=== PATIENT | female | born 1980 | race Caucasian/White ===

== ENCOUNTER 2018-08-11 11:00 | Day surgery (SDC) | payer BC ==
[~2018-08-11] VITALS: Ht 157.5 cm; Wt 74.8 kg
[2018-08-11] VITALS (15 sets, daily range): BP systolic 112–135; BP diastolic 71–88; PULSE 78–96; RESP 12–24; Ht 157.5 cm; Wt 74.8 kg
[~2018-08-11 11:00] MED LIST: CEFAZOLIN 1 GM INJ ONE; CEFAZOLIN 2 GM/50 ML (PMX) 50 ML IVPB SCH; DESFLURANE 15 MIN ONE; ONDANSETRON 4 MG INJ ONE; SOD CHLORIDE 0.9% 1,000 ML IV ONE
[2018-08-11] MEDS ORDERED: NITR100C6 ORAL (11:56)
[2018-08-11] MEDS ORDERED: IBUP-1541 ORAL (11:56)
[2018-08-11] MEDS ORDERED: ROCURONIUM 50 MG INJ ONE (13:09)
[2018-08-11] MEDS ORDERED: METOCLOPRAMIDE 10 MG INJ ONE (13:09)
[2018-08-11] MEDS ORDERED: MIDAZOLAM 1 MG/ML 2 ML INJ ONE (13:09)
[2018-08-11] MEDS ORDERED: FENTAnyl 50 MCG/ML VIAL ONE (13:09)
[2018-08-11] MEDS ORDERED: PROPOFOL 20 ML ONE (13:09)
[2018-08-11] MEDS ORDERED: SUCCINYLCHOLINE CHLORIDE 100 MG/5 ML SYG IV ONE (13:09)
[2018-08-11] MEDS ORDERED: LIDOCAINE 100 MG SYRINGE ONE (13:12)
--- NOTE | 2018-08-11 13:35 | PREAC ---
Date/Time of Note Date/Time of Note DATE: 08/11/18 TIME: 13:34 Anesthesia Eval and Record Evaluation Time Pre-Procedure Interview DATE: 08/11/18 TIME: 13:34 Age 37 Sex female NPO: 8 hrs Preoperative diagnosis gallstones Planned procedure lap eliazar Past Medical History Past Medical History: Includes Renal: Other (UTI) Surgery & Anesthesia Issues No known issue Meds Anticoagulation: No Beta Sobia within 24 hr: No Reason Beta Sobia not given: Pt. not on B-Sobia Reported Medications Nitrofurantoin Monohyd Macrocr (Macrobid) 100 Mg Capsr, 1 CAP ORAL BID 08/11/18 Ibuprofen* (Ibuprofen*) 400 Mg Tablet, 1 TAB ORAL Q6 PRN for PAIN LEVEL 1-5 08/11/18 Current Medications Cefazolin Sodium/ Dextrose 50 ml @ 100 mls/hr PRE-OP IVPB ; Start 08/11/18 at 06:00; Stop 08/11/18 at 18:00 Sodium Chloride 1,000 ml @ 75 mls/hr [id number] ONCE IV ; Start 08/11/18 at 06:00; Stop 08/11/18 at 19:19 Meds reviewed: Yes Allergies Coded Allergies: acetaminophen (Verified Allergy, Mild, NAUSEA, 08/08/18) codeine (Verified Allergy, Mild, NAUSEA, 08/08/18) Allergies Reviewed: Yes Labs/Studies Labs Reviewed: Reviewed by anesthesiologist test: Negative Studies: ECG Pre-procedure Exam Last vitals Vital Signs Date Temp Pulse Resp B/P (MAP) Pulse Ox O2 O2 Flow FiO2 Time Delivery Rate 08/11/18 97.9 78 16 117/76 100 Room Air 12:40 (90) Airway: Adequate mouth opening, Adequate thyromental dist Mallampati: Mallampati III Teeth: Normal Lung: Normal Heart: Normal ASA Physical Status ASA physical status: 2 Emergency: None Planned Anesthetic General/MAC: ETT Planned Pain Management Single shot nerve block, Parenteral pain med, Local by surgeon Pre-operative Attestations Prior to commencing anesthesia and surgery, the patient was re-evaluated, there was verification of: *The patient's identity *The results of appropriate recent lab work and preoperative vital signs *The above evaluation not changing prior to induction *Anesthetic plan, risk benefits, alternative and complications discussed with patient/family; questions answered; patient/family understands, accepts and wishes to proceed. LUPILLO ELKINS MD Aug 11, 2018 13:35
[2018-08-11] MEDS ORDERED: MIDAZOLAM 1 MG/ML 2 ML INJ IV PRN (14:00)
[2018-08-11] MEDS ORDERED: FENTAnyl 50 MCG/ML VIAL IV PRN ×2 (14:00)
[2018-08-11] MEDS ORDERED: LEVALBUTEROL (NEB) 1.25 MG/0.5 ML AMP HHN PRN (14:00)
[2018-08-11] MEDS ORDERED: LABETALOL HCL 20MG INJ IV PRN (14:00)
[2018-08-11] MEDS ORDERED: HALOPERIDOL 5 MG INJ IV PRN (14:00)
[2018-08-11] MEDS ORDERED: hydrALAzine 20 MG INJ IV PRN (14:00)
[2018-08-11] MEDS ORDERED: HYDROmorphONE 1 MG/5 ML IV SYRINGE IV PRN ×3 (14:00)
[2018-08-11] MEDS ORDERED: MEPERIDINE 25 MG INJ IV PRN (14:00)
[2018-08-11] MEDS ORDERED: DIPHENHYDRAMINE 50 MG INJ IV PRN (14:00)
[2018-08-11] MEDS ORDERED: KETOROLAC 30 MG INJ IV PRN (14:00)
[2018-08-11] MEDS ORDERED: ROPIVACAINE 0.5 % 30 ML VIAL ONE (14:38)
--- NOTE | 2018-08-11 15:07 | OPR ---
Date/Time of Note Date/Time of Note DATE: 08/11/18 TIME: 15:04 Operative Report Procedure Date: Aug 11, 2018 Preoperative Diagnosis symptomatic gallstones Postoperative Diagnosis same Operation/Procedure Performed laparoscopic cholecystectomy Surgeon see signature line Cupola Melter none Anesthesia Type: general Estimated Blood Loss: 10 - 50 ml's Transfusion none Specimen gallbladder Grafts/Implants none Complications none Pt Condition Post Procedure: stable Indications This is a 37-year-old female with some tender gallstones. She required surgical excision of her gallbladder. Risks alternatives benefits in personal discussed the patient. Potential complications including but not limited to bleeding infection, bile duct injury intra-abdominal organ injury need for additional operations were discussed the patient. Patient expressed understanding consents to the operation. Procedure Description Patient taken to the OR and prepped and draped in usual sterile fashion. Surgical time was performed. IV antibiotics given. Infraumbilical transverse incision was made with a 15 blade. Dissection with cautery was carried onto the fascia. The fascia was grasped with Jennifer's and divided with curved Salas scissors. 0 Vicryl U stitches placed into the fascia. Delgadillo trocar was in troduced. Pneumoperitoneum is established. Midepigastric 12 mm optical trochars placed under direct position. Right upper quadrant upper flank 5 mm optical trochars were placed under direct visualization. Upon initial inspection there is intrahepatic gallbladder with thickened gallbladder wall. The gallbladder is grasped the fundus and retracted lateral cephalad direction. [place] graspers were used to dissect out the cystic duct and cystic artery. However due to adhesions a dome down approach was initially taken to mobilize the gallbladder to allow better visualization. The cystic duct and cystic artery identified the critical view was established. The cystic duct is thickened and is not able to be clipped. This was divided with a 35 mm echelon vascular stapler. The staple line . Due to its thickened tissue the staple line of the cystic duct had to be closed using running 2-0 Vicryl using laparoscopic techniques. After closure of the cystic duct with 2-0 Vicryl running suture the suture line was then reinforced with additional clips. Cystic artery was divided to close proximally clipped distal division performed laparoscopic scissors. The gallbladder was taken of the gallbladder bed. Good hemostasis established. The gallbladder was retrieved using Endo Catch bag. Magdalena MCGOVERN Aug 11, 2018 15:07
[2018-08-11] MEDS ORDERED: HYDROmorphONE 2 MG/ML SYG ONE (15:11)
[2018-08-11] MEDS ORDERED: HYDROCODONE/APAP (5/325) TAB PO ONE (15:30)
[2018-08-11] MEDS: ONDANSETRON 4 MG INJ IV PRN ×2 (15:47→17:04)
--- NOTE | 2018-08-11 17:04 | PAC ---
Date/Time of Note Date/Time of Note DATE: 08/11/18 TIME: 17:04 Post-Anesthesia Notes Post-Anesthesia Note Last documented vital signs Vital Signs Date Temp Pulse Resp B/P (MAP) Pulse Ox O2 O2 Flow FiO2 Time Delivery Rate 08/11/18 99.5 15:23 08/11/18 78 16 117/76 100 Room Air 12:40 (90) Activity: WNL Respiratory function: WNL Cardiovascular function: WNL Mental status: Baseline Pain reasonably controlled: Yes Hydration appropriate: Yes Nausea/Vomiting absent: Yes LUPILLO ELKINS MD Aug 11, 2018 17:04
== END 2018-08-11 17:20 | disposition home or self-care (01) ==
LOC: SDS 11:00
PROVIDERS: ATTEND Surgery
DX: K80.10 Calculus of gallbladder with chronic cholecystitis without obstruction (principal)
CPT/HCPCS: 47562; 84703; 88304; J0690; J1170; J1885; J2001; J2250; J2405; J2765; J2795; J3010; Z7512; Z7610